=== PATIENT | male | born 1990 | race Caucasian/White ===

== ENCOUNTER 2020-05-23 13:23 | Outpatient (CLI) | payer BC, SELFPAY ==
--- NOTE | ~2020-05-23 | US_ITS ---
EXAMINATION: US scrotum doppler DATE: 05/23/2020 15:38 INDICATION: Scrotal pain TECHNIQUE: Testicular sonogram utilizing grayscale and Doppler COMPARISON: None. FINDINGS: The right testis measures 4.4 x 2.1 x 3.4 cm. The left testis measures 4.3 x 2.0 x 3.5 cm. There is normal vascular flow to both testes. The right epididymis is normal with normal vascular rosio w. The left epididymis is normal with normal vascular flow. There is no varicocele or hydrocele. IMPRESSION: 1. No sonographic correlate for the patient's symptoms. Reviewed, dictated and finalized at location A. AWAY WORKER
== END 2020-05-23 13:24 | disposition home or self-care (01) ==
LOC: CHSIMG 13:30
PROVIDERS: PCP Family Medicine; Visit Provider Family Medicine
DX: N50.82 Scrotal pain (principal)
CPT/HCPCS: 76870; 93976

== ENCOUNTER 2022-12-22 21:47 | Emergency (ER) | payer BC, SELFPAY ==
--- NOTE | ~2022-12-22 | CT_ITS ---
CT of the Abdomen and Pelvis: Indication: Abdominal pain Technique: 2.5 mm axial scans were obtained through the abdomen and pelvis following intravenous adm inistration of 100 cc of Omnipaque 350. Dose reduction technique was used on this scan by utilizing a utomated exposure control and iterative reconstruction technique. The dose-length product (DLP) was 7 86.15 mGy-cm. Findings: Scans through the lung bases are unremarkable. The liver, spleen, pancreas, gallbladder, adrenals and kidneys are within normal limits. No evidence of aortic aneurysm. No lymphadenopathy. No bowel obstruction or bowel wall thickening. There is no evidence to suggest acute appendicitis. Images through the pelvis were performed. Urinary bladder unremarkable. Prostate gland and seminal ve sicles are unremarkable. No ascites. Impression: No significant abnormalities seen. Reviewed, dictated and finalized at [facility]. Impression: No significant abnormalities seen.
[2022-12-22 21:55] VITALS: BP 136/95; PULSE 99; RESP 18; TEMP 36.9; O2SAT 98
[2022-12-22 23:45] LABS: Appearance Urine Clear (Clear); Bilirubin Urine Negative (Negative); Blood Urine Negative (Negative); Color Urine Yellow (Yellow); Glucose Urine UA Negative (Negative); Ketones Urine 1+ mg/dL (Negative); Leukocyte Esterase Ur Negative LEU/UL (Negative); Nitrate Urine Negative (Negative); Protein Urine Negative (Negative); Specific Grav Ur 1.024 (1.001-1.035); Urobilinogen Urine 0.2 mg/dL (<2.0)
[2022-12-22] MEDS: SODIUM CHLORIDE 0.9% IV 1,000 ML 999 ML IV CONT (23:45)
[2022-12-22] MEDS: PANTOPRAZOLE SODIUM IV 40 MG VIAL IV PUSH (23:46)
[2022-12-22] MEDS: ONDANSETRON INJ 4 MG/2 ML VIAL IV PUSH (23:46)
[2022-12-22 23:47] LABS: Add Urine Microscopic? NO
[2022-12-22 23:50] VITALS: BP 146/104; PULSE 82; RESP 15; O2SAT 98
[2022-12-22 23:51] VITALS: BP 145/104; PULSE 79; RESP 15; O2SAT 97
[2022-12-22 23:57] LABS: Alanine Aminotransferase 83 U/L (6-50); Albumin Level 4.8 g/dL (3.5-5.1); Alkaline Phosphatase 98 U/L (38-126); Anion Gap 10 mmol/L (8-16); Aspartate Amino Transferase 44 U/L (17-59); Blood Urea Nitrogen 15 mg/dL (9-20); Calcium 9.2 mg/dL (8.4-10.2); Carbon Dioxide 25 mmol/L (22-30); Chloride 98 mmol/L (98-107); Estimated CRCL calculation 131 ml/min; Estimated Glomerular Filt Rate > 60; Glucose 93 mg/dL (65-110); Lipase 58 U/L (23-300); Potassium 3.8 mmol/L (3.4-5.0); Sodium 133 mmol/L (137-145)
[2022-12-23 00:01] VITALS: BP 136/98; PULSE 75; RESP 15; O2SAT 98
[2022-12-23 00:01] LABS: Basophils Percent Auto 0.4 % (0.2-1.2); Eosinophils Absolute Auto 0.1 K/mm3 (0-0.3); Eosinophils Percent Auto 1.1 % (0-4.4); Hematocrit 47.4 % (42.0-52.0); Hemoglobin 16.4 g/dL (14.0-18.0); Immature Granulocyte Absolute 0.03 K/mm3 (0.00-0.031); Immature Granulocyte Percent A 0.3 % (0-0.5); Lymphocytes Absolute Auto 1.88 K/mm3 (0.9-3.2); Lymphocytes Percent Auto 18.4 % (18.3-44.2); Mean Corpuscular HGB Conc 34.6 g/dl (32-36); Mean Corpuscular Hemoglobin 29.9 pg (26-34); Mean Corpuscular Volume 86.3 fl (80-100); Mean Platelet Volume 9.9 fl (7.4-10.4); Monocytes Absolute Auto 0.9 K/mm3 (0.1-0.6); Monocytes Percent Auto 8.7 % (2.6-8.5); Neutrophils Absolute Auto 7.3 K/mm3 (1.3-6.7); Neutrophils Percent Auto 71.1 % (45.5-73.1); Platelet Count Result 210 k/mm3 (150-375); Red Blood Count 5.49 M/mm3 (4.6-6.20); Red Cell Distribution Width 12.5 % (11.5-14.5); White Blood Count 10.2 K/mm3 (4.5-10.0)
[2022-12-23 00:16] VITALS: BP 138/102; PULSE 78; RESP 15; O2SAT 100
[2022-12-23 00:31] VITALS: BP 139/98; PULSE 74; RESP 16; O2SAT 98
--- NOTE | 2022-12-23 02:17 | ED.GENADULT ---
HPI - General Adult General Chief complaint: Unspecified Stated complaint: bloating, SOB, lightheadedness Time Seen by Provider: 12/22/22 23:13 History of Present Illness HPI narrative: Patient 32-year-old gentleman who presents emerged from with chief complaint of abdominal pain. Patient reports that has been having a feeling of abdominal discomfort and bloating reports is gotten worse over the last several days. The patient reports he was seen in urgent care and started on a stool softener. Patient reports he has had a bowel movement today reports that it was not hard patient also feels as though his abdomen is pushing up into his chest Related Data Allergies Allergy/AdvReac Type Severity Reaction Status Date / Time No Known Allergies Allergy Verified 12/23/22 02:39 Review of Systems Review of Systems: A 10 system review of systems was completed on the patient and is negative except for what is stated in the HPI. Nursing and ancillary documentation was reviewed. Exam Narrative: GENERAL: Well-appearing, well-nourished, and in no acute distress. HEAD: Normocephalic, atraumatic. EYES: PERRLA and EOMI. ENT: Nares clear, no rhinorrhea or epistaxis. Mucous membranes moist. NECK: Supple. CHEST: Clear to auscultation. No respiratory distress. HEART: Regular rate and rhythm. No murmur heard. Normal peripheral pulses. ABDOMEN: Soft, nontender, nondistended, normal active bowel sounds. EXTREMITIES: Normal range of motion. No edema. SKIN: Warm, dry, no rash. NEURO: No focal deficits. Alert and oriented x3. PSYCH: Normal mood and affect. Course Vital Signs Vital signs: Vital Signs Temperature 36.9 C 12/22/22 21:55 Pulse Rate 99 12/22/22 21:55 Respiratory Rate 18 12/22/22 21:55 Blood Pressure 136/95 H 12/22/22 21:55 Pulse Oximetry 98 12/22/22 21:55 Oxygen Delivery Room Air 12/22/22 21:55 Temperature 36.9 C 12/22/22 21:55 Pulse Rate 74 12/23/22 00:31 Respiratory Rate 16 12/23/22 00:31 Blood Pressure 139/98 H 12/23/22 00:31 Pulse Oximetry 98 12/23/22 00:31 Oxygen Delivery Room Air 12/22/22 21:55 Medical Decision Making MDM Narrative Medical decision making narrative: Differential diagnosis includes bowel obstruction, constipation, gastritis, diverticulitis, appendicitis Laboratory studies were obtained and the patient which showed normal CBC electrolytes were within normal limits urinalysis showed 1+ ketones otherwise negative CT scan of the abdomen pelvis showed normal appendix no acute bowel findings no significant stool no hydronephrosis no nephrolithiasis bladder was unremarkable and unremarkable pelvic organs Vital Signs Vital Signs: Vital Signs Temperature 36.9 C 12/22/22 21:55 Pulse Rate 99 12/22/22 21:55 Respiratory Rate 18 12/22/22 21:55 Blood Pressure 136/95 H 12/22/22 21:55 Pulse Oximetry 98 12/22/22 21:55 Oxygen Delivery Room Air 12/22/22 21:55 Temperature 36.9 C 12/22/22 21:55 Pulse Rate 74 12/23/22 00:31 Respiratory Rate 16 12/23/22 00:31 Blood Pressure 139/98 H 12/23/22 00:31 Pulse Oximetry 98 12/23/22 00:31 Oxygen Delivery Room Air 12/22/22 21:55 Lab Data 12/22/22 23:43 12/22/22 23:43 Labs: Lab Results 12/22/22 12/22/22 Range/Units 23:36 23:43 WBC 10.2 H (4.5-10.0) K/mm3 RBC 5.49 (4.6-6.20) M/mm3 Hgb 16.4 (14.0-18.0) g/dL Hct 47.4 (42.0-52.0) % MCV 86.3 (80-100) fl MCH 29.9 (26-34) pg MCHC 34.6 (32-36) g/dl RDW 12.5 (11.5-14.5) % Plt Count 210 (150-375) k/mm3 MPV 9.9 (7.4-10.4) fl Immature Gran % (Auto) 0.3 (0-0.5) % Neut % (Auto) 71.1 (45.5-73.1) % Lymph % (Auto) 18.4 (18.3-44.2) % Heard % (Auto) 8.7 H (2.6-8.5) % Eos % (Auto) 1.1 (0-4.4) % Baso % (Auto) 0.4 (0.2-1.2) % Lymph # (Auto) 1.88 (0.9-3.2) K/mm3 Heard # (Auto) 0.9 H (0.1-0.6) K/mm3 Eos # (Auto) 0.1 (0-0.3) K/mm
[2022-12-23 03:28] VITALS: BP 134/74; PULSE 72; RESP 15; O2SAT 99
== END 2022-12-23 03:29 | disposition home or self-care (01) ==
PROVIDERS: Emergency Provider Emergency Medicine; PCP Family Medicine
DX: R10.84 Generalized abdominal pain (principal)
CPT/HCPCS: 36415; 74177; 80053; 81003; 83690; 85025; 96361; 96374; 96375; 99284; C9113; J2405; J7030; Q9967

== ENCOUNTER 2022-12-29 17:23 | Outpatient (CLI) | payer BC, SELFPAY ==
--- NOTE | ~2022-12-29 | XR_ITS ---
EXAMINATION: XR chest 2V Exam Date/Time: 12/29/2022 17:40 CDT HISTORY: SOB x 1wk Comparison: CT abdomen pelvis 12/22/2022. RESULT: Lines, tubes, and devices: None. Lungs and pleura: Clear. Cardiomediastinal silhouette: Normal. Other: No acute osseous or upper abdominal finding. IMPRESSION: No acute cardiopulmonary process. Reviewed, dictated and finalized at location K.
== END 2022-12-29 17:24 | disposition home or self-care (01) ==
LOC: CHSIMG 17:25
PROVIDERS: PCP Family Medicine; Visit Provider Family Medicine
DX: R07.89 Other chest pain (principal)
CPT/HCPCS: 71046

== ENCOUNTER 2023-01-05 12:52 | Outpatient (CLI) | payer BC, SELFPAY ==
--- NOTE | ~2023-01-05 | XR_ITS ---
EXAMINATION: XR barium swallow DATE: 01/05/2023 13:44 INDICATION: Dysphagia with chest pain, difficulty swallowing and reflux. TECHNIQUE: The patient drank thick barium, gas-producing crystals, and thin barium. Fluoroscopic spot radiographs of the hypopharynx and esophagus were obtained. Fluoroscopy exposure time was 2.1 minut es. A total of 1362 fluoroscopic images were recorded. COMPARISON: None. FINDINGS: The pharynx is symmetric and without evidence of mass lesion or mucosal irregularity. The e sophagus is normal without mass or stricture. Esophageal motility is normal. There is no hiatal herni a. There was no gastroesophageal reflux with provocative maneuvers. IMPRESSION: 1. Normal esophagram. Reviewed, dictated and finalized at location A. IMPRESSION: 1. Normal esophagram.
== END 2023-01-05 12:53 | disposition home or self-care (01) ==
PROVIDERS: PCP Family Medicine; Visit Provider Family Medicine
DX: R13.10 Dysphagia, unspecified (principal); R07.9 Chest pain, unspecified
CPT/HCPCS: 74220

== ENCOUNTER 2023-03-06 02:40 | Day surgery (SDC) | payer BC, SELFPAY ==
[2023-02-24 12:29] VITALS: BMI 31.1
[2023-03-06 12:42] VITALS: BMI 31.1
[2023-03-06 12:59] VITALS: BP 156/105; PULSE 88; RESP 20; TEMP 36.2; O2SAT 96
[2023-03-06] MEDS: LACTATED RINGERS 1,000 ML 150 ML IV CONT (13:00)
[2023-03-06 13:03] VITALS: BP 150/101
--- NOTE | 2023-03-06 13:04 | WPDANESEPPF ---
Anes - Initial Pre Proc Eval Procedure: Operation Date: 03/06/23 14:15 Proposed Procedures p Esophagogastroduodenoscopy - Chico Anderson MD Date/Time: 03/06/23 13:04 Surgeon: Chico Anderson MD Pre Op Diagnosis: Dysphagia, Abdominal distension (gaseous), Patient Data Age: 32 Gender: M Height: 1.75 m Weight: 95.7 kg Last Vital Signs Temp 97.1 F L 03/06/23 12:59 Pulse 88 03/06/23 12:59 Resp 20 03/06/23 12:59 BP 150/101 H 03/06/23 13:03 Pulse Ox 96 03/06/23 12:59 O2 Del Method Room Air 03/06/23 12:59 Allergies Allergy/AdvReac Type Severity Reaction Status Date / Time No Known Allergies Allergy Verified 03/06/23 12:41 Home Medications Medication Instructions Recorded Confirmed Type No Home Medications 02/24/23 02/24/23 History Patient hx anesthesia problems: none Family hx anesthesia problems: none Results Review: All pre-operative results and documents have been reviewed as part of the pre-operative evaluation. FOR[facility] Past Medical History Medical History (Updated 02/12/23 @ 10:38 by Elvira Baker APRN) Abdominal bloating Dysphagia Epigastric pressure Globus sensation Obesity SOB (shortness of breath) Social History Social History Smoking status: Never smoker Substance use type: does not use Living arrangements: alone Spiritual care concerns: No Anes - Eval Final PreProcedure Day of Procedure 03/06/23 13:04 Patient weight: normal Heart: regular rate and rhythm Lungs: clear to auscultation Airway: Mallampati scale class II Neurological: alert and oriented Last oral intake: >/= 8 hours ASA classification: II Emergent: no Anesthetic plan: proceed Anesthesia type and monitoring: general GIVS and standard monitoring Results Review: All pre-operative results and documents have been reviewed as part of the pre-operative evaluation. Informed Consent: The patient's anesthetic plan and its attendant risks and benefits were discussed with the patient/family/POA. Questions were solicited and answers provided to the satisfaction of the patient/family/POA.
--- NOTE | 2023-03-06 13:25 | WPDHPUPDATE1 ---
History and Physical Update Update Date/Time: 03/06/23 13:25 History and Physical has been reviewed, including an updated exam of the patient. There are NO changes in the patient's condition. Risks, benefits, and alternatives have been discussed and questions answered. Patient agrees to proceed with procedure.
[2023-03-06] MEDS: BENZOCAINE (*SP) 60 ML SPRAY CAN (HURRICAINE) 1 SPRAY MUCOUS MEM (13:32)
[2023-03-06 13:46] VITALS: BP 106/62; PULSE 107; RESP 24; O2SAT 96
[2023-03-06 13:56] VITALS: BP 115/78; PULSE 89; RESP 17; O2SAT 95
[2023-03-06 14:06] VITALS: BP 141/89; PULSE 91; RESP 18; O2SAT 98
== END 2023-03-06 14:22 | disposition home or self-care (01) ==
PROVIDERS: PCP Family Medicine; Visit Provider Internal Medicine Gastroenterology
PROC: 0DJ08ZZ Inspection of Upper Intestinal Tract, Via Natural or Artificial Opening Endoscopic (ICD-10-PCS; CPT 43235; principal; 2023-03-06 14:15)
DX: K20.0 Eosinophilic esophagitis (principal); K29.50 Unspecified chronic gastritis without bleeding
CPT/HCPCS: 43239; 88305; J2001; J2704; J7120

== ENCOUNTER 2023-05-06 14:04 | Outpatient (CLI) | payer BC, SELFPAY ==
--- NOTE | ~2023-05-06 | XR_ITS ---
EXAMINATION: XR chest 2V DATE: 05/06/2023 14:42 INDICATION: Shortness of breath. TECHNIQUE: Frontal and lateral views of the chest were obtained. COMPARISON: Chest 2 views 12/29/2022 FINDINGS: There is no pneumonia, pleural effusion, or pneumothorax. The heart size is normal. IMPRESSION: 1. No acute cardiopulmonary disease. Reviewed, dictated and finalized at location A. HIC DESIGNER
[2023-05-06 14:30] LABS: Basophils Absolute Auto 0.05 K/mm3 (0.00-0.10); Basophils Percent Auto 0.7 % (0.0-1.0); Eosinophils Absolute Auto 0.31 K/mm3 (0.02-0.50); Eosinophils Percent Auto 4.2 % (1.0-6.0); Hematocrit 48.9 % (40.0-54.0); Hemoglobin 16.8 g/dL (14.0-18.0); Immature Granulocyte Absolute 0.03 K/mm3 (0.00-0.00); Immature Granulocyte Percent A 0.4 % (0.0-0.0); Lymphocytes Absolute Auto 2.17 K/mm3 (1.10-4.50); Lymphocytes Percent Auto 29.1 % (18.0-42.0); Mean Corpuscular HGB Conc 34.4 g/dL (32.0-36.0); Mean Corpuscular Hemoglobin 30.1 pg (27.0-31.0); Mean Corpuscular Volume 87.6 fL (78.0-102.0); Monocytes Absolute Auto 0.69 K/mm3 (0.10-0.90); Monocytes Percent Auto 9.3 % (2.0-11.0); Neutrophils Absolute Auto 4.2 K/mm3 (1.7-7.2); Neutrophils Percent Auto 56.3 % (50.0-70.0); Platelet Count Result 245 K/mm3 (150-420); Red Blood Count 5.58 M/mm3 (4.70-6.10); Red Cell Distribution Width 12.6 % (11.6-14.4); White Blood Count 7.5 K/mm3 (4.8-10.8)
[2023-05-06 14:42] LABS: Alanine Aminotransferase 127 U/L (16-63); Albumin Level 4.4 g/dL (3.4-5.0); Alkaline Phosphatase 105 U/L (46-116); Anion Gap 3 mmol/L (8-16); Aspartate Amino Transferase 37 U/L (15-37); Bilirubin,Total 0.6 mg/dL (0.00-1.00); Blood Urea Nitrogen 10 mg/dL (7-18); Carbon Dioxide 33 mmol/L (21-32); Chloride 99 mmol/L (98-108); Estimated Glomerular Filt Rate > 60; Glucose 100 mg/dL (70-99); Osmolality Calculated 279 mOsm/kg (285-295); Potassium 3.8 mmol/L (3.5-5.1); Sodium 135 mmol/L (136-145); Total Protein 8.3 g/dL (6.4-8.2); Troponin I 6.7 ng/L (0.00-60.4)
== END 2023-05-06 14:05 | disposition home or self-care (01) ==
LOC: CHSLAB 14:06
PROVIDERS: PCP Family Medicine; Visit Provider Family Medicine
DX: R06.00 Dyspnea, unspecified (principal); R07.9 Chest pain, unspecified
CPT/HCPCS: 36415; 71046; 80053; 84484; 85025

== ENCOUNTER 2023-05-29 09:32 | Outpatient (CLI) | payer BC, SELFPAY ==
[2023-05-29 10:12] LABS: Alanine Aminotransferase 147 U/L (16-63); Albumin Level 4.3 g/dL (3.4-5.0); Alkaline Phosphatase 106 U/L (46-116); Anion Gap 7 mmol/L (8-16); Aspartate Amino Transferase 44 U/L (15-37); Bilirubin,Total 0.4 mg/dL (0.00-1.00); Blood Urea Nitrogen 11 mg/dL (7-18); Calcium 9.4 mg/dL (8.5-10.1); Carbon Dioxide 31 mmol/L (21-32); Chloride 105 mmol/L (98-108); Estimated Glomerular Filt Rate > 60; Glucose 133 mg/dL (70-99); Osmolality Calculated 297 mOsm/kg (285-295); Sodium 143 mmol/L (136-145); Total Protein 7.3 g/dL (6.4-8.2)
== END 2023-05-29 09:33 | disposition home or self-care (01) ==
LOC: CHSLAB 09:33
PROVIDERS: PCP Family Medicine; Visit Provider Nurse Practitioner
DX: R10.13 Epigastric pain (principal); K20.0 Eosinophilic esophagitis; R74.01 Elevation of levels of liver transaminase levels
CPT/HCPCS: 36415; 80053; 82785; 86003

== ENCOUNTER 2023-06-12 13:19 | Outpatient (CLI) | payer BC, SELFPAY ==
--- NOTE | 2023-06-12 | ECHO_ITS ---
Patient Info Name: Chau Alvarez Age: 32 years : 1990 Gender: Male Ht: 69 in Wt: 219 lbs BSA: 2.23 m2 HR: 68 bpm BP: 169 / 91 mmHg Technical Quality: Fair Exam Date: 06/12/2023 2:15 PM Exam Location: Echo Lab Patient Status: Outpatient Admit Date: 06/12/2023 Staff Ordering Physician: Alan Cobos MD Stockroom Clerk: Korin Farmer RDCS Attending Provider: Alan Cobos MD Referring Physician: Chandrika GUERRA; Exam Type: CA echo dop color flow w con Study Info Indications - essential htn Complete two-dimensional, color flow and Doppler transthoracic echocardiogram is performed with contrast to opacify the left ventricle and to improve the deliniation of the left ventricle endocardial borders. Contrast/Agitated Saline Contrast/Ag. Saline: Definity Amount: 2.00 ml Administered By: Korin Farmer [facility] Existing IV Access: Yes New IV Access: Left Site Condition: IV removed Summary 1. Definity contrast administered improved wall motion interpretation. 2. Left ventricular chamber dimension is normal. 3. Left ventricular systolic function is normal, estimated at 60-65%. 4. The left ventricular diastolic function is grade I diastolic dysfunction. 5. E/e' 9 is minimally elevated. 6. No pulmonary hypertension, estimated pulmonary arterial systolic pressure is 28 mmHg. Left Ventricle E/e' 9 is minimally elevated. Definity contrast administered improved wall motion interpretation. Left ventricular chamber dimension is normal. Left ventricular systolic function is normal, estimated at 60-65%. The left ventricular diastolic function is grade I diastolic dysfunction. Right Ventricle Right ventricular chamber dimension is normal. Right ventricular systolic function is normal. Left Atria Left atrial chamber dimension is normal. Right Atria Right atrial chamber dimension is normal. Aortic Valve The aortic valve is trileaflet. There is no aortic valve stenosis. There is no aortic valve regurgitation. Pulmonic Valve There is no pulmonic regurgitation. Mitral Valve There is no mitral valve stenosis. There is no mitral valve regurgitation. Tricuspid Valve There is no tricuspid valve regurgitation. No pulmonary hypertension, estimated pulmonary arterial systolic pressure is 28 mmHg. Pericardium/Pleural There is no pericardial effusion. Inferior Vena Cava Normal inferior vena cava with >50% collapse upon inspiration consistent with normal right atrial pressure, 5 mmHg. Aorta The aortic root size at the sinus of Valsalva is normal. Left Ventricular Outflow Tract Name Value Normal LVOT 2D LVOT Diameter 2.06 cm LVOT Doppler LVOT Peak Gradient 5 mmHg LVOT Mean Gradient 2 mmHg LVOT VTI 18.73 cm LVOT VTI/AV VTI Ratio 0.80 LVOT Stroke Volume 62.49 ml LVOT CO 13.50 l/min LVOT CI 6.05 L/min/m2 Pulmonic Valve Name V
[2023-06-12] MEDS: PERFLUTREN LIPID MICROSPHERES 1.5 ML VIAL DILUTED TO 10 ML TOTAL VOLUME IV PUSH (14:30)
--- NOTE | 2023-06-12 16:47 | IVDEFINITY ---
Prior to administration of IV Definity the patient was educated on the risks and benefits of the imaging enhancing agent including potential adverse side effects. The patient verbalized understanding. Allergies were verified. No exclusion criteria were identified and at least one of the following inclusion criteria were met: 1) physician request, 2) patient technically difficult to image (per the [place] [employer]ch[employer] guidelines of two or more segments not discernable within the apical view), or 3) questionable left ventricular function. ?
== END 2023-06-12 13:20 | disposition home or self-care (01) ==
PROVIDERS: PCP Family Medicine; Visit Provider Family Medicine
DX: R93.1 Abnormal findings on diagnostic imaging of heart and coronary circulation (principal); I10 Essential (primary) hypertension
CPT/HCPCS: C8929; Q9957

== ENCOUNTER 2023-06-25 10:47 | Outpatient (CLI) | payer BC, SELFPAY ==
[2023-06-25 11:59] LABS: Anion Gap 11 mmol/L (8-16); Blood Urea Nitrogen 15 mg/dL (7-18); Calcium 8.6 mg/dL (8.5-10.1); Carbon Dioxide 27 mmol/L (21-32); Chloride 100 mmol/L (98-108); Cholesterol 180 mg/dL (0-200); Estimated Glomerular Filt Rate > 60; Glucose 77 mg/dL (70-99); HDL Direct 39 mg/dL (40-60); LDL Cholesterol Calculated 126 mg/dL (<130); Osmolality Calculated 285 mOsm/kg (285-295); Potassium 4.2 mmol/L (3.5-5.1); Sodium 138 mmol/L (136-145); Triglycerides 75 mg/dL (0-150)
== END 2023-06-25 10:48 | disposition home or self-care (01) ==
LOC: CHSLAB 10:49
PROVIDERS: PCP Family Medicine; Visit Provider Family Medicine
DX: I10 Essential (primary) hypertension (principal)
CPT/HCPCS: 36415; 80048; 80061

== ENCOUNTER 2023-07-06 12:46 | Outpatient (CLI) | payer BC, SELFPAY ==
--- NOTE | 2023-07-07 15:28 | WPDPFTINT ---
PFT Procedure Performed PFT Procedure Performed Spirometry with Pre/Post Bronchodilator Plethysmography (Lung Vol) Diffusing Cap (DLCO) Flow Vol Loop PFT Interpretation Lung volumes were measured with the body plethysmography method. Total lung capacity is borderline normal the remainder of the lung volumes are unremarkable. Spirometry showed normal expiratory flow rates and a normal FEV1 to FVC ratio of 87%. Following administration of a bronchodilator there was no significant increase in expiratory flow rates. Lung diffusion capacity is within the normal range. The flow-volume loop is unremarkable. Impression: Spirometry, lung volumes, lung diffusion capacity all within the normal range.
== END 2023-07-06 12:47 | disposition home or self-care (01) ==
PROVIDERS: PCP Family Medicine; Visit Provider Internal Medicine Pulmonary Disease
DX: R06.02 Shortness of breath (principal)
CPT/HCPCS: 94060; 94726; 94729

== ENCOUNTER 2023-07-21 16:04 | Outpatient (CLI) | payer BC, SELFPAY ==
--- NOTE | ~2023-07-21 | XR_ITS ---
EXAMINATION: XR chest 2V Exam Date/Time: 07/21/2023 16:12 TIMBER INSPECTOR HISTORY: J98.4 - Other disorders of lung. HTN, LOW BLOOD PRESUURE Comparison: 05/06/2023. RESULT: Lines, tubes, and devices: None. Lungs and pleura: Clear. Cardiomediastinal silhouette: Stable. Other: No acute osseous or upper abdominal finding. IMPRESSION: No acute cardiopulmonary process. Reviewed, dictated and finalized at location K. ER INSPECTOR
== END 2023-07-21 16:05 | disposition home or self-care (01) ==
PROVIDERS: PCP Family Medicine; Visit Provider Internal Medicine Pulmonary Disease
DX: J98.4 Other disorders of lung (principal)
CPT/HCPCS: 71046

== ENCOUNTER 2025-03-20 13:46 | Outpatient (CLI) | payer BC, SELFPAY ==
--- NOTE | ~2025-03-20 | XR_ITS ---
EXAMINATION: XR chest 2V, 03/20/2025 13:40 CDT HISTORY: subacute cough COMPARISON: No comparisons available. Technique: 2 views obtained. Findings: The lungs are clear, no effusion. No pneumothorax. Heart is normal size. Mediastinal and hilar contours are within normal limits. Bony thorax no acute abnormality. Impression: No acute cardiopulmonary abnormality. Reviewed, dictated and finalized at location P. Impression: No acute cardiopulmonary abnormality.
--- OUTSIDE RECORDS SUMMARY | 2025-03-20 15:25 | XMS_ITS | Clinical Summary ---
Author Organization [facility] Address [facility] [place] [address] Care Team Providers Care Control Systems Technician Name Role Phone Alan Cobos MD Primary Care Provider [phone] Allergies Active Allergy Reactions Criticality Noted Date Comments Dupilumab Itching 06/08/2023 Pt states he is taking this currently, last dose was 06/05/23 Budesonide Shortness of Breath High 06/08/2023 Medications Dupilumab (DUPIXENT SC) Active loratadine (CLARITIN) 10 MG tablet Take 1 tablet (10 mg total) by mouth daily. Active famotidine (PEPCID) 10 MG tablet Take 1 tablet (10 mg total) by mouth 2 (two) times daily. Active ibuprofen (MOTRIN) 200 MG tablet Take 1 tablet (200 mg total) by mouth every 6 (six) hours as needed for Pain. 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 Gender Identity Not on file Sexual Orientation Not on file Last Filed Vital Signs Vital Sign Reading Time Taken Comments Blood Pressure 128/93 06/09/2023 12:00 AM HORSE EXERCISER Pulse 88 06/09/2023 12:15 AM HORSE EXERCISER Temperature 36.4 C (97.5 F) 06/08/2023 11:08 PM HORSE EXERCISER Respiratory Rate 21 06/09/2023 12:15 AM HORSE EXERCISER Oxygen Saturation 96% 06/09/2023 12:15 AM HORSE EXERCISER Inhaled Oxygen Concentration - - Weight 97.5 kg (215 lb) 06/08/2023 11:08 PM HORSE EXERCISER Height 175.3 cm (5' 9) 06/08/2023 11:08 PM HORSE EXERCISER Body Mass Index 31.75 06/08/2023 11:08 PM HORSE EXERCISER Plan of Treatment Health Maintenance Due Date Last Done Comments Annual Physical 11/23/1994 Hepatitis C 11/23/2009 HPV Vaccines (1 - 3-dose SCDM series) 11/23/2018 COVID-19 Vaccine ( season) 2025 Influenza Adult (#1) 2025 DTaP, Tdap and Td Vaccines (7 - Td or Tdap) 06/11/2026 06/11/2016, 01/19/1996, 08/20/1993, Additional history exists Hepatitis B Vaccines Completed 12/27/2001, 08/06/2001, 06/19/2001 Hepatitis A Vaccines Aged Out No long er eligible based on patient's age to complete this topic Meningococcal B Vaccine Aged Out No l onger eligible based on patient's age to complete this topic Meningococcal Vaccine Aged Out No francisco jason eligible based on patient's age to complete this topic Pneumococcal Vaccine: Pediatrics (0 to 5 Years) and At-Risk Patients (6 to 49 Years) Aged Out No longer eligible based on patient's age to complete this topic RSV Immunizations Under 20 Months Aged Out No longer eligible based on patient's age to complete this topic Insurance [address] [place] [address] [facility] Care Teams Control Systems Technician Relationship Specialty Start Date End Date Alan Cobos MD [address] [place] [address] PCP - General FAMILY PRACTICE 06/08/23
== END 2025-03-20 13:47 | disposition home or self-care (01) ==
LOC: CHSIMG 13:48
PROVIDERS: PCP Family Medicine; Visit Provider Family Medicine
DX: R05.2 Subacute cough (principal)
CPT/HCPCS: 71046

== ENCOUNTER 2025-04-11 08:08 | Emergency (ER) | payer BC, SELFPAY ==
--- NOTE | 2025-04-11 08:12 | ED_ITS ---
HPI - General Adult General Chief complaint: Urogenital-Male Stated complaint: Kidney Pain Time Seen by Provider: 04/11/25 08:18 Source: patient, RN notes reviewed and old records reviewed Mode of arrival: ambulatory Limitations: no limitations History of Present Illness HPI narrative: 34-year-old male presents to the [facility] with complaints of right flank pain that started last night. Reports it as very sharp pain last night, better today. Did take 1 ibuprofen last night. Worse with twisting and bending. Reports nausea without vomiting. Denies abdominal pain. Patient is not sexually active, denies any chances of STIs. Reports burning with urination. Denies any frequency or urgency had symptoms similar in the past which he was treated at another urgent care. Unsure what he was given or his diagnosis. Treatments prior to arrival: NSAID (x1) Related Data Home Medications ?Medication ?Instructions ?Recorded ?Confirmed ?Last Taken ?Type losartan 50 mg tablet 50 mg PO DAILY 04/06/2503/25 Unknown History Allergies Allergy/AdvReac Type Severity Reaction Status Date / Time inhaler Allergy Unknown Unknown Uncoded 04/11/25 08:18 Review of Systems 2 Review of Systems: All systems reviewed & are unremarkable except as noted in HPI and below Constitutional: Constitutional: Reports no additional constitutional complaints ENT: Reports system reviewed and no additional complaints, except as documented Cardiovascular: Cardiovascular: Reports no additional cardiovascular complaints, Denies chest pain and Denies dyspnea Respiratory: Respiratory: Reports no additional respiratory complaints, Denies chest congestion, Denies cough and Denies dyspnea Musculoskeletal: Musculoskeletal: Reports as per HPI Integumentary/Breasts: Skin/Breast: Reports system reviewed and no additional complaints, except as docu PMFSH Past Medical History Medical History Urticaria Eosinophilic esophagitis Obesity Epigastric pressure SOB (shortness of breath) Abdominal bloating Globus sensation Dysphagia Surgical History Surgical History History of endoscopy Social History Social History Smoking status: Never smoker Substance use type: does not use Living arrangements: alone Spiritual care concerns: No Comments At the time of my signature, I reviewed and agree with the nursing past medical, surgical, social, and family history. There is no relevant family history pertinent to the patient complaint. Exam 2 Const: General: cooperative, healthy appearing, comfortable, no acute distress, well developed, alert and well nourished Nutritional Appearance: w ell nourished and obese Orientation/consciousness: patient oriented x3 L imitations: no limitations HENMT: Head: normal to inspection Mouth: Yes Normal oral and palatal mucosa present, Yes lip normal, Yes tongue normal and Yes moist mucous membranes Eyes: General: appearance normal, both eyes and all related structures A lignment and Position: alignment normal Neck: Neck: normal visual inspection, full ROM, no lymphadenopathy and no meningeal signs Chest: Chest palpation & inspection: normal inspection of the chest Resp: Effort & Inspection: normal respiratory effort and able to speak in complete sentences Auscultation: clear to auscultation bilaterally, no crackles, no rales, no rhonchi and no wheezes Cardio: Rate: regular rate GI: GI Palp: No abdominal tenderness and Yes Soft to palpation : General: Yes no CVA tenderness Back/Spine/Pelvis: Back: No erythema and back tenderness ( right lower) Back/spine/pelvis image: 1. Reports discomfort with twisting Skin: General skin exam: normal color and no rashes or lesions noted Neuro: General: patient oriented x3, gait normal, moves all extremities and no meningeal signs Cognition (Neuro): normal cognition Speech: normal speech Gait exam (Neuro): Normal gait present Extrem: General: normal to inspection, full ROM, capillary refill normal and normal gait Psych: Appearance: grossly normal and well kempt Mental Status: mental status grossly normal Speech and movement: Normal speech and movement present and Clear speech present Affect: normal affect Attitude: cooperative Course Course Level of Care: Express Care Visit Vital Signs Vital signs: Vital Signs Temperature 97.1 F L 04/11/25 08:16 Pulse Rate 97 04/11/25 08:16 Respiratory Rate 16 04/11/25 08:16 Blood Pressure 125/96 H 04/11/25 08:16 Pulse Oximetry 97 04/11/25 08:16 Temperature 97.1 F L 04/11/25 08:16 Pulse Rate 97 04/11/25 08:16 Respiratory Rate 16 04/11/25 08:16 Blood Pressure 125/96 H 04/11/25 08:16 Pulse Oximetry 97 04/11/25 08:16 Reviewed Medical Decision Making MDM Narrative Medical decision making narrative: patient sitting comfortably in exam room. Patient is nontoxic, vitals are stable. Patient presents with right flank pain since last night, has improved. Able to change positions without issue. Patient reports twisting makes the pain worse. Does report nausea and burning with urination urine dip with trace amount blood but otherwise negative. discussed the limitations of the [facility], unable to do blood work. patient is appropriate for outpatient treatment with strict signs and symptoms to proceed to the emergency room for further evaluation Discharge instructions reviewed with patient, as well as provided in writing per nursing staff. The instructions also include specific and strict return/GO TO THE ER as well as f/u information. All questions have been answered, and the patient deny any further questions with discharge and discharge plan. Some parts of this dictation were generated by voice recognition software and may contain typographical and/or grammatical inaccuracies. Differential Diagnosis Differential Diagnosis: Kidney stone, UTI, dehydration, dysuria, muscle strain Medical Records Medical records reviewed: Yes I reviewed the external patient's medical records. Vital Signs Vital Signs: Vital Signs Temperature 97.1 F L 04/11/25 08:16 Pulse Rate 97 04/11/25 08:16 Respiratory Rate 16 04/11/25 08:16 Blood Pressure 125/96 H 04/11/25 08:16 Pulse Oximetry 97 04/11/25 08:16 Temperature 97.1 F L 04/11/25 08:16 Pulse Rate 97 04/11/25 08:16 Respiratory Rate 16 04/11/25 08:16 Blood Pressure 125/96 H 04/11/25 08:16 Pulse Oximetry 97 04/11/25 08:16 Reviewed Lab Data Lab results reviewed: Yes I reviewed the patient's lab results. Labs: Lab Results 04/11/25 Range/Units 08:33 POC Urine Color Yellow POC Urine Clarity Clear POC Urine pH 7.5 POC Ur Specif [place] 1.015 POC Urine Protein Negative (Negative) POC Ur Glucose (UA) Negative (Negative) POC Urine Ketones Negative (Negative) POC Urine Blood Trace (Negative) POC Urine Nitrite Negative (Negative) POC Urine Bilirubin Negative (Negative) POC Urine Urobilinogen 0.2 POC U Leukocyte Esteras Negative (Negative) Reviewed Critical Care Time Critical Care Time Critical Care Time: No Discharge Plan Discharge Clinical Impression: Dysuria Low back pain Qualifiers: Chronicity: acute Back pain laterality: right Sciatica presence: without sciatica Qualified Code(s): M54.50 - Low back pain, unspecified Patient Disposition: Home Condition: Stable Instructions: Antibiotic Form, Acute Low Back Pain (ED) Additional Instructions: please follow-up with your primary care provider take medications as prescribed you can alternate Motrin and Tylenol as needed for pain increase your fluid intake with water, Gatorade, Pedialyte, ice pops or Jell- O. Avoid anything caffeinated or carbonated. for new or worsening symptoms please go directly to the emergency room Patient Language: Lithuanian Prescriptions: New baclofen 10 mg tablet 10 mg PO TID PRN (Reason: muscle pain) Qty: 10 0RF No Action albuterol sulfate 90 mcg/actuation aerosol powdr breath activated 2 inh inhalation Q4H PRN (Reason: shortness of breath or wheezing) Qty: 1 3RF albuterol sulfate 90 mcg/actuation HFA aerosol inhaler 2 inh inhalation Q4H PRN (Reason: shortness of breath or wheezing) Qty: 8.5 3RF losartan 50 mg tablet 50 mg PO DAILY Dupixent Pen 300 mg/2 mL pen injector See Rx Instructions .ROUTE .COMPLEX Qty: 4 3RF Dose Instruction: INJECT 1 PEN UNDER THE SKIN EVERY 7 DAYS Rx Instructions: INJECT 1 PEN UNDER THE SKIN EVERY 7 DAYS fluticasone propion-salmeterol [Wixela Inhub] 100-50 mcg/dose blister with device 1 inh inhalation Q12H Qty: 180 6RF Follow-up/Referrals: PHYSICIAN,INSURANCE OFFICE SUPERVISOR [Primary Care Provider, Internal Medicine] Stand Alone Forms: Work/School Release IP Time of Disposition: 08:41
[2025-04-11 08:16] VITALS: BP 125/96; PULSE 97; RESP 16; TEMP 36.2; O2SAT 97
[2025-04-11 08:35] LABS: EDUAAPPEAR Clear; EDUABILI Negative (Negative); EDUABLOOD Trace (Negative); EDUACOLOR1 Yellow; EDUAGLUCOSE Negative (Negative); EDUAKETONE Negative (Negative); EDUALEUKO Negative (Negative); EDUANITRATE Negative (Negative); EDUAPH 7.5; EDUAPROTEIN Negative (Negative); EDUASPGRAVITY 1.015; EDUAUROBILI 0.2
== END 2025-04-11 08:46 | disposition home or self-care (01) ==
PROVIDERS: Emergency Provider Nurse Practitioner
DX: R30.0 Dysuria (principal); M54.50 Low back pain, unspecified; K20.0 Eosinophilic esophagitis; E66.9 Obesity, unspecified; Z68.32 Body mass index [BMI] 32.0-32.9, adult
CPT/HCPCS: 81003; 87086; 99213; G0463

== ENCOUNTER 2025-04-17 18:42 | Emergency (ER) | payer BC, SELFPAY ==
[2025-04-17 18:48] VITALS: BP 144/110; PULSE 89; RESP 16; TEMP 36.5; O2SAT 97
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
== END 2025-04-17 19:10 | disposition home or self-care (01) ==
PROVIDERS: Emergency Provider Nurse Practitioner Family
DX: T23.241A Burn of second degree of multiple right fingers (nail), including thumb, initial encounter (principal); X19.XXXA Contact with other heat and hot substances, initial encounter; K20.0 Eosinophilic esophagitis; E66.9 Obesity, unspecified; Z68.31 Body mass index [BMI] 31.0-31.9, adult
CPT/HCPCS: 99213; G0463